=== PATIENT | male | born 1985 | race Hispanic/Latino ===

== ENCOUNTER 2018-10-28 23:12 | Emergency (ER) | payer OTHER ==
[2018-10-28 23:19] VITALS: BMI 25.0
[2018-10-28 23:23] VITALS: RESP 18
[2018-10-28] MEDS ORDERED: DiphenhydrAMINE 50 mg/ml Inj IVP STA (23:43)
[2018-10-28] MEDS ORDERED: Sodium Chloride 0.9% 1,000 ML IV STA (23:43)
[2018-10-28] MEDS ORDERED: DiphenhydrAMINE 50 mg/ml Inj ONE (23:51)
--- NOTE | 2018-10-29 00:56 | ED PDOC ---
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 Patient reports of eating [place] food tonight when he developed nausea with a few episodes of vomiting, rash and shortness of breath one hour after. Patient states he administered an epi-pen at 11 o'clock. Patient reports breathing symptoms improved and came immediately to the ED for further evaluation. PMD: Tyler King Past Medical History Reviewed: Historical Data, Nursing Documentation, Vital Signs Vital Signs: Last Vital Signs Temp 98.2 F 10/28/18 23:21 Pulse 86 10/28/18 23:21 Resp 18 10/28/18 23:21 BP 126/76 10/28/18 23:21 Pulse Ox 98 10/28/18 23:21 - Medical History PMH: No Chronic Diseases - Surgical History Surgical History: No Surg Hx - Family History Family History: States: Unknown Family Hx - Allergies Allergies/Adverse Reactions: Allergies Allergy/AdvReac Type Severity Reaction Status Date / Time FISH Allergy ANAPHYLAXIS Verified 10/28/18 23:19 peanut Allergy ANAPHYLAXIS Verified 10/28/18 23:19 Penicillins Allergy ANAPHYLAXIS Verified 10/28/18 23:19 sesame seed Allergy ANAPHYLAXIS Verified 10/28/18 23:19 Review of Systems ROS Statement: Except As Marked, All Systems Reviewed And Found Negative Respiratory: Positive for: Shortness of Breath Gastrointestinal: Positive for: Nausea, Vomiting Skin: Positive for: Rash Physical Exam - Reviewed Nursing Documentation Reviewed: Yes Vital Signs Reviewed: Yes - Physical Exam Appears: Positive for: Uncomfortable Head Exam: Positive for: ATRAUMATIC Skin: Positive for: Rash (Urticaria of face, upper chest and upper back) Eye Exam: Positive for: Normal appearance ENT: Negative for: Pharyngeal Erythema, Tonsillar Swelling Neck: Positive for: Normal, Painless ROM Cardiovascular/Chest: Positive for: Regular Rate, Rhythm. Negative for: Murmur Respiratory: Positive for: Normal Breath Sounds. Negative for: Respiratory Distress Gastrointestinal/Abdominal: Positive for: Normal Exam, Soft. Negative for: Tenderness Back: Positive for: Normal Inspection. Negative for: L CVA Tenderness, R CVA Tenderness, Vertebral Tenderness Extremity: Positive for: Normal ROM. Negative for: Deformity Neurologic/Psych: Positive for: Alert, Oriented. Negative for: Motor/Sensory Deficits - ECG O2 Sat by Pulse Oximetry: 98 (RA) Pulse Ox Interpretation: Normal Disposition - Clinical Impression Clinical Impression: Allergic reaction - Disposition Referrals: [facility] [Outside] Disposition: Routine/Home Disposition Time: 04:02 Condition: IMPROVED Instructions: Sherron (DC) Forms: [facility] (Yakut) Medical Decision Making Medical Decision Making: Time: 2342 A/P: 33 y/o male presenting with an allergic reaction. -- Based on description of earlier symptoms, patient is post anaphylactic. -- Will monitor patient for 6 hours -- Will administer SOLU-Medrol, Benadryl and Pepcid -- Benadryl 50 mg IVP -- Sodium Chloride IV 1000 mls/hr -- Pepcid 20 mg IVP -- SOLU-Medrol 125 mg IVP 400 --PAtient symptoms have all resolved, appearing very well --Patient has 3 epipens at home --Patient requesting PO benadryl --Will discharge home Scribe Attestation: Documented by Noe Mayo, acting as a scribe for Joe Burt MD. Provider Scribe Attestation: All medical record entries made by the Scribe were at my direction and personally dictated by me. I have reviewed the chart and agree that the record accurately reflects my personal performance of the history, physical exam, medical decision making, and the department course for this patient. I have also personally directed, reviewed, and agree with the discharge instructions and disposition.
[2018-10-29 07:05] VITALS: BP 122/74; PULSE 81; TEMP 98; O2SAT 99
== END 2018-10-29 05:40 | disposition home or self-care (01) ==
LOC: H.ER 23:12
DX: T78.40XA Allergy, unspecified, initial encounter (principal)
CPT/HCPCS: 96374; 96375; 99283; J1200; J2930; J7030